=== PATIENT | female | born 1990 | race Hispanic/Latino ===

== ENCOUNTER 2018-12-19 22:01 | Emergency (ER) | payer SELFPAY ==
[~2018-12-19] VITALS: Ht 152.4 cm; Wt 72.6 kg
[2018-12-19] MEDS ORDERED: PRENATAL MULTI1 EAC1 PO (22:50)
[2018-12-19] MEDS ORDERED: PROGESTERO50 MG/1 ML IM (22:51)
[2018-12-19] MEDS ORDERED: ENDOMETRIN100 MG VAGINAL (22:52)
[2018-12-19] MEDS ORDERED: ESTRADIOL2 MG PO (22:52)
== END 2018-12-20 00:38 | disposition home or self-care (01) ==
LOC: ED 22:01
DX: O99.89 Other specified diseases and conditions complicating pregnancy, childbirth and the puerperium (principal); R31.9 Hematuria, unspecified; Z79.899 Other long term (current) drug therapy
CPT/HCPCS: 81001; 99283